=== PATIENT | male | born 2000 | race Caucasian/White ===

== ENCOUNTER 2025-03-03 11:51 | Emergency (ER) | payer SELFPAY ==
[~2025-03-03] VITALS: Ht 182.9 cm; Wt 80.0 kg
[2025-03-03] MEDS ORDERED: HALOPERIDOL LACTATE 5MG/ML VIAL IM ONE (12:15)
[2025-03-03] MEDS: HALOPERIDOL LACTATE 5MG/ML VIAL IM NR (12:25)
[2025-03-03] MEDS: LORAZEPAM 2MG/ML UD SYRINGE IM NR (12:25)
[2025-03-03 12:32] LABS: BASOPHILS % 0.2 % (0.0-2.0); EOSINOPHILS % 0.1 % (0.0-5.0); HEMATOCRIT. 38.7 % (42.0-52.0); HEMOGLOBIN. 13.0 g/dL (14.0-18.0); LYMPHOCYTES % 13.9 % (20.0-50.0); MEAN PLATELET VOLUME 8.1 fl (7.4-10.4); MONOCYTES % 9.9 % (2.0-8.0); NEUTROPHILS % 75.9 % (40.0-76.0); PLATELET 204 x1000/uL (130-400); RED BLOOD CELL COUNT 4.16 mill/uL (4.7-6.1); RED CELL DISTRIBUTION WIDTH 13.3 % (11.6-14.6)
[2025-03-03 12:46] LABS: CREATININE 1.6 mg/dL (0.6-1.3)
[2025-03-03 12:47] LABS: ETHANOL BLOOD < 10 mg/dL (<10); UREA NITROGEN BLOOD 31 mg/dL (9-23)
[2025-03-03] MEDS: BACITRACIN ZINC OINT UDPKT TOP ONE (12:52)
[2025-03-03 12:55] VITALS: O2SAT 99
[2025-03-03 17:57] LABS: COLOR URINE DARK YELLOW (YELLOW); GLUCOSE URINE NEGATIVE (NEGATIVE); KETONES URINE TRACE (NEGATIVE); LEUKOCYTE ESTERASE URINE NEGATIVE (NEGATIVE); NITRITE URINE NEGATIVE (NEGATIVE); OCCULT BLOOD URINE 1+ (NEGATIVE); PH URINE 5.5 (4.5-8.0); PROTEIN URINE 1+ (NEGATIVE); SPECIFIC GRAVITY URINE 1.034 (1.005-1.030); UROBILINOGEN URINE 0.2 E.U./dL (0.2-1.0)
[2025-03-03 18:01] LABS: *AMPHETAMINES SCREEN URINE PRESUMPTIVE POSITIVE (NEGATIVE)
[2025-03-03 18:02] LABS: *BARBITURATES SCREEN URINE NEGATIVE (NEGATIVE); *BENZODIAZEPINES SCREEN URINE NEGATIVE (NEGATIVE); *COCAINE SCREEN URINE NEGATIVE (NEGATIVE); CANNABINOID URINE SCREEN NEGATIVE (NEGATIVE); ECSTASY MDMA SCREEN URINE CONF.TEST INDICATED (NEGATIVE); METHADONE URINE SCREEN NEGATIVE (NEGATIVE); OPIATES URINE SCREEN NEGATIVE (NEGATIVE); PHENCYCLIDINE URINE SCREEN NEGATIVE (NEGATIVE)
[2025-03-03 18:29] LABS: CLARITY URINE TURBID (CLEAR)
[2025-03-03 18:31] LABS: AMORPHOUS SEDIMENT URINE 4+ /lpf; BACTERIA URINE NONE SEEN; MUCUS URINE TRACE /lpf (NONE/TRACE); RBC URINE 0-2 /hpf (0-2); SQUAMOUS EPITHELIAL CELL URINE RARE /lpf (RARE/1+); WBC URINE NONE SEEN /hpf (0-2)
[2025-03-04 02:59] LABS: ASPARTATE AMINOTRANSFERASE 109 IU/L (<34)
[2025-03-04 03:00] LABS: BILIRUBIN DIRECT 0.5 mg/dL (<=3.0); BILIRUBIN TOTAL 1.6 mg/dL (0.1-1.0); PROTEIN TOTAL 6.9 g/dL (6.0-8.3)
[2025-03-04] MEDS: RISPERIDONE 0.5MG TABLET PO SCH (11:46)
[2025-03-04 18:59] VITALS: BP 113/78; PULSE 83; RESP 20; TEMP 37; O2SAT 100
== END 2025-03-04 19:11 | disposition short-term general hospital (02) ==
LOC: ER 11:51
DX: S00.212A Abrasion of left eyelid and periocular area, initial encounter (principal); S02.2XXA Fracture of nasal bones, initial encounter for closed fracture; R45.1 Restlessness and agitation; F15.10 Other stimulant abuse, uncomplicated; Z20.822 Contact with and (suspected) exposure to COVID-19; Z79.899 Other long term (current) drug therapy; X58.XXXA Exposure to other specified factors, initial encounter; Y93.89 Activity, other specified; Y92.89 Other specified places as the place of occurrence of the external cause; Y99.8 Other external cause status
CPT/HCPCS: 80305; 80048; 81003; 80307; 80329; 80320; 85025; 36415 ×2; 70450; 70486; 96372; 99291; 87426; 80076; J1630; J2060; G0480